=== PATIENT | female | born 1960 | race Caucasian/White ===

== ENCOUNTER → 2017-02-28 | Outpatient (CLI) | payer MEDICAID ==
[~2017-02-28] MED LIST: ACET-709 PO; ALBU18HF INH; ASCORBIC ACID PO; BECL8.7A5 INH; CEPH-376 PO; CYANOCOBALAMIN PEG; FLUT16SP; GLYB5TAB3 PO; IRON PO; LEVO100T5 PO; LOSA25TA5 PO; METF10002 PO; METF500T4 PO; MONT10TA9 PO; POT PO; POTA8TAB PO; ROPI0.5T2 PO; SERT50TA5 PO; [UNRECOGNIZED DRUG - OTHER] PO; [UNRECOGNIZED DRUG - OTHER] PO; [UNRECOGNIZED DRUG - OTHER] PO
[2017-02-28 11:30] LABS: ASPARTATE AMINO TRANSFERASE 23 U/L (15-37); BLOOD UREA NITROGEN 11 mg/dL (7-18)
[2017-02-28 11:43] LABS: HEMOGLOBIN 16.1 g/dL (11.7-16.4)
== END | disposition home or self-care (01) ==
LOC: STAR 09:21
PROVIDERS: ATTEND Specialist
DX: Z01.818 Encounter for other preprocedural examination (principal); E11.9 Type 2 diabetes mellitus without complications; R19.07 Generalized intra-abdominal and pelvic swelling, mass and lump; R79.1 Abnormal coagulation profile
CPT/HCPCS: 36415; 71020; 80053; 85025; 85610; 85730; 86304; 93005

== ENCOUNTER 2017-03-14 05:58 | Day surgery (SDC) | payer MEDICAID, OTHER ==
[~2017-03-14] VITALS: Ht 152.4 cm; Wt 58.0 kg
[2017-03-14] MEDS ORDERED: OMEP10CA4 PO (06:28)
[2017-03-14] MEDS ORDERED: INSU100C SQ-INSULIN (06:31)
[2017-03-14] MEDS ORDERED: INSU100I34 SQ (06:38)
[2017-03-14 06:50] VITALS: BP 143/86
[2017-03-14] MEDS ORDERED: BUPIVACAINE/PF-EPI 0.25% 1:200K ONE (06:52)
[2017-03-14] MEDS ORDERED: INDOCYANINE GREEN 25 MG VIAL ONE (06:52)
[2017-03-14] MEDS ORDERED: HEPARIN 1,000 UNITS/ML, 10ML ONE (06:52)
[2017-03-14] MEDS ORDERED: FENTANYL PF 250 MCG/5ML ONE ×2 (07:20→08:27)
[2017-03-14] MEDS ORDERED: MIDAZOLAM 1 MG/ML, 2ML ONE (07:20)
[2017-03-14] MEDS ORDERED: CEFOTETAN 1 GM ONE (07:33)
[2017-03-14] MEDS ORDERED: NEOSTIGMINE 1 MG/ML, 10ML ONE (07:33)
[2017-03-14] MEDS ORDERED: GLYCOPYRROLATE 0.2MG/1ML ONE (07:33)
[2017-03-14] MEDS ORDERED: ROCURONIUM 10 MG/ML ONE (07:33)
[2017-03-14] MEDS ORDERED: ONDANSETRON 2MG/ML, 2ML ONE (07:33)
[2017-03-14] MEDS ORDERED: PROPOFOL 10 MG/ML, 20ML ONE (07:33)
[2017-03-14] MEDS ORDERED: LACTATED RINGERS 1,000 ML IV SCH ×2 (07:41→09:26)
[2017-03-14] MEDS ORDERED: ALBUTEROL/IPRATROPIUM 2.5MG/0.5MG, 3 ML NPPB PRN (08:30)
[2017-03-14] MEDS ORDERED: METOPROLOL 1 MG/ML, 5ML IV PRN (08:30)
[2017-03-14] MEDS ORDERED: HYDROmorphone 1 MG/ML, 1ML IV PRN (08:30)
[2017-03-14] MEDS ORDERED: FENTANYL PF 100 MCG/2ML IV PRN (08:30)
[2017-03-14] MEDS ORDERED: hydrALAzine 20 MG/ML, 1ML IV PRN (08:30)
[2017-03-14] MEDS ORDERED: MEPERIDINE/PF 25MG/0.5ML IVPush PRN (08:30)
[2017-03-14] MEDS ORDERED: ACETAMINOPHEN 325 MG TABLET PO PRN (08:30)
[2017-03-14] MEDS ORDERED: PROMETHAZINE 25 MG/ML, 1ML IV PRN (08:30)
[2017-03-14] MEDS ORDERED: OXYcodone 5 MG/5 ML ORAL.SOL UDC PO PRN (08:30)
[2017-03-14] MEDS ORDERED: OXYcodone 5 MG/5 ML ORAL.SOL UDC ONE (09:25)
[2017-03-14] MEDS ORDERED: OXYcodone/APAP 5/325MG TABLET PO PRN (09:30)
[2017-03-14] MEDS ORDERED: ONDANSETRON 2MG/ML, 2ML IVPush PRN (09:30)
[2017-03-14] MEDS ORDERED: KETOROLAC 30 MG/1 ML IVPush PRN (09:30)
[2017-03-14] MEDS ORDERED: KETOROLAC 30 MG/1 ML ONE (09:57)
[2017-03-14] MEDS ORDERED: MEPERIDINE/PF 25MG/0.5ML ONE (09:57)
[2017-03-14] MEDS ORDERED: NALOXONE 1 MG/ML, 2ML ONE (11:50)
[2017-03-14] MEDS ORDERED: SODIUM CHLORIDE 0.9% 1,000 ML IVBOLUS ONE (12:30)
[2017-03-14 12:32] LABS: HEMOGLOBIN 14.6 g/dL (11.7-16.4)
== END 2017-03-14 16:00 | disposition home or self-care (01) ==
LOC: OUT 05:58 → MERGE 09:00 → OUT 16:00
PROVIDERS: ATTEND Specialist
DX: D27.0 Benign neoplasm of right ovary (principal); D27.1 Benign neoplasm of left ovary; N94.89 Other specified conditions associated with female genital organs and menstrual cycle; K66.0 Peritoneal adhesions (postprocedural) (postinfection); Z90.710 Acquired absence of both cervix and uterus; E11.9 Type 2 diabetes mellitus without complications; J45.909 Unspecified asthma, uncomplicated; E03.9 Hypothyroidism, unspecified; F41.9 Anxiety disorder, unspecified; M06.9 Rheumatoid arthritis, unspecified; Z72.89 Other problems related to lifestyle; Z80.3 Family history of malignant neoplasm of breast; Z83.3 Family history of diabetes mellitus; Z82.3 Family history of stroke; Z82.49 Family history of ischemic heart disease and other diseases of the circulatory system
CPT/HCPCS: 36415; 58661; 58662; 82962; 85014; 85018; 86850; 86900; 86923; 88305; 88331; 93005; J1885; J2175; J2310; J2405; J2704; J2710; J3010; J7120; S2900; J1644; J3490; S0074

== ENCOUNTER 2021-02-03 09:43 | Outpatient (CLI) | payer MEDICAID ==
[~2021-02-03 09:43] MED LIST changes: -BECL8.7A5 INH; +BECL8.7A7 INH; -FLUT16SP; +FLUT16SP24; +INSU100C SQ-INSULIN; +INSU100I34 SQ; +LOSA25TA25 PO; -LOSA25TA5 PO; +METF500T17 PO; -METF500T4 PO; +MONT10TA17 PO; -MONT10TA9 PO; +OMEP10CA5 PO; -ROPI0.5T2 PO; +ROPI0.5T4 PO; +SERT50TA28 PO; -SERT50TA5 PO
== END 2021-02-03 23:59 | disposition home or self-care (01) ==
LOC: RAD 09:43
PROVIDERS: ATTEND Internal Medicine Gastroenterology
DX: T18.2XXA Foreign body in stomach, initial encounter (principal); K22.70 Barrett's esophagus without dysplasia; K31.89 Other diseases of stomach and duodenum; X58.XXXA Exposure to other specified factors, initial encounter; Y93.89 Activity, other specified; Y92.89 Other specified places as the place of occurrence of the external cause; Y99.8 Other external cause status
CPT/HCPCS: 74240; 74248; 78264; A9541